=== PATIENT | female | born 1995 | race Two or more races ===

== ENCOUNTER 2022-09-22 15:11 | Inpatient (IN) | payer OTHER ==
[2022-09-22 17:26] VITALS: BMI 22.6
[2022-09-22] MEDS ORDERED: LOPERAMIDE HCL 2 MG CAPSULE PO PRN (18:34)
[2022-09-22] MEDS ORDERED: guaiFENesin 200 MG/10 ML 10 ML UNIT-DOSE CUPS PO PRN (18:34)
[2022-09-22] MEDS ORDERED: MAGNESIUM CITRATE 300 ML BOTTLE PO PRN (18:34)
[2022-09-22] MEDS ORDERED: P-EPHED 60MG/TRIPROLIDI 2.5MG TABLET PO PRN (18:34)
[2022-09-22] MEDS ORDERED: MAGNESIUM HYDROX 2400MG/30ML ORAL SUSPENSION 30 ML CUP PO PRN (18:34)
[2022-09-22] MEDS ORDERED: MAG HYDROX/AL HYDROX/SIMETH 30 ML UNIT-DOSE CUP PO PRN (18:34)
[2022-09-22] MEDS ORDERED: NICOTINE POLACRILEX 2 MG GUM BC PRN (18:34)
[2022-09-22] MEDS ORDERED: TUBERCULIN PPD 5 TU/0.1ML VIAL ID ONE (21:41)
[2022-09-22] MEDS: THIAMINE HCL 100 MG TABLET (FP) PO SCH (21:42)
[2022-09-22] MEDS: hydrOXYzine PAMOATE 25 MG CAPSULE (FP) PO PRN (21:43)
[2022-09-22] MEDS ORDERED: MELATONIN 5 MG TABLETS PO SCH (22:00)
[2022-09-23] MEDS ORDERED: methaDONE HCL 40 MG DISPERSABLE TABLET PO ONE (10:00)
[2022-09-23] MEDS: NICOTINE 21 MG/24 HOURS TOPICAL PATCH TD SCH (11:08)
[2022-09-23] MEDS: PRENATAL VITAMINS W/ FOLIC ACID TABLET (FP) PO SCH (11:08)
[2022-09-23 11:16] LABS: ALBUMIN 3.2 g/dl (3.4-5.0); CALCIUM 8.5 mg/dL (8.5-10.1)
[2022-09-23 11:17] LABS: BLOOD UREA NITROGEN 9.9 mg/dL (7-18)
[2022-09-23 11:20] LABS: CREATININE 0.7 mg/dL (0.55-1.3); HEMATOCRIT 41.5 % (32.4-45.2); HEMOGLOBIN 13.4 GM/dL (10.7-15.3); MCH 28.2 pg (25.7-33.7); MCHC 32.3 g/dl (32.0-36.0); MEAN CELL VOLUME 87.1 fl (80-96); MEAN PLT VOLUME 9.9 fl (7.5-11.1); PLATELET COUNT 198 10^3/uL (134-434); RBC 4.77 M/mm3 (3.60-5.2); RDW 13.4 % (11.6-15.6)
[2022-09-23 11:21] LABS: TOT PROT 6.4 g/dl (6.4-8.2)
[2022-09-23 11:22] LABS: BILIRUBIN,TOTAL 0.5 mg/dL (0.2-1)
[2022-09-23 12:12] LABS: SYPHILIS W/ RPR CONF NON-REACTIVE (NONREACTIVE)
[2022-09-23] MEDS: SUVOREXANT 5 MG TABLET PO PRN (22:37)
[2022-09-23] MEDS: THIAMINE HCL 100 MG TABLET (FP) PO SCH (22:38)
[2022-09-24 03:08] LABS: EPI CELLS >36 /uL (0-25.1); HYALINE CASTS 2 /uL (0-3.1); PH,URINE 6.5 (5.0-8.0); URINE APPEARANCE CLOUDY; URINE BACTERIA 2830 /uL (0-1359); URINE BILIRUBIN NEGATIVE (NEGATIVE); URINE COLOR YELLOW; URINE GLUCOSE (UA) NEGATIVE (NEGATIVE); URINE KETONE NEGATIVE (NEGATIVE); URINE LEUK ESTERASE TRACE (NEGATIVE); URINE NITRITE NEGATIVE (NEGATIVE); URINE PROTEIN NEGATIVE (NEGATIVE); URINE RBC 7 /uL (0-23.9); URINE UROBILINOGEN 0.2 mg/dL (0.2-1.0); URINE WBC 135 /uL (0-25.8)
[2022-09-24] MEDS: methaDONE HCL 40 MG DISPERSABLE TABLET PO SCH (06:37)
[2022-09-24] MEDS: NICOTINE 21 MG/24 HOURS TOPICAL PATCH TD SCH (10:43)
[2022-09-24] MEDS: PRENATAL VITAMINS W/ FOLIC ACID TABLET (FP) PO SCH (10:43)
[2022-09-24] MEDS: ACETAMINOPHEN 325 MG TABLET (FP) PO PRN (10:44)
[2022-09-24] MEDS: THIAMINE HCL 100 MG TABLET (FP) PO SCH (21:42)
[2022-09-24] MEDS: hydrOXYzine PAMOATE 25 MG CAPSULE (FP) PO PRN (21:42)
[2022-09-25] MEDS: methaDONE HCL 40 MG DISPERSABLE TABLET PO SCH (06:36)
[2022-09-25] MEDS: PRENATAL VITAMINS W/ FOLIC ACID TABLET (FP) PO SCH (10:36)
[2022-09-25] MEDS: NICOTINE 21 MG/24 HOURS TOPICAL PATCH TD SCH (10:37)
[2022-09-25] MEDS: ACETAMINOPHEN 325 MG TABLET (FP) PO PRN (10:37)
[2022-09-25] MEDS: hydrOXYzine PAMOATE 25 MG CAPSULE (FP) PO PRN ×2 (10:38→21:25)
[2022-09-25] MEDS: THIAMINE HCL 100 MG TABLET (FP) PO SCH (21:25)
[2022-09-26] MEDS: methaDONE HCL 40 MG DISPERSABLE TABLET PO SCH (06:23)
[2022-09-26] MEDS: PRENATAL VITAMINS W/ FOLIC ACID TABLET (FP) PO SCH (10:08)
[2022-09-26] MEDS: IBUPROFEN 400 MG TABLET (FP) PO PRN (10:08)
[2022-09-26] MEDS: hydrOXYzine PAMOATE 25 MG CAPSULE (FP) PO PRN ×2 (10:09→21:14)
[2022-09-26] MEDS: NICOTINE 21 MG/24 HOURS TOPICAL PATCH TD SCH (10:09)
[2022-09-26] MEDS: GABAPENTIN 300 MG CAPSULE PO SCH ×2 (13:28→21:14)
[2022-09-26] MEDS: SUVOREXANT 5 MG TABLET PO PRN (21:14)
[2022-09-26] MEDS: THIAMINE HCL 100 MG TABLET (FP) PO SCH (21:14)
[2022-09-27] MEDS: NICOTINE 10 MG CARTRIDGE (INHALER) IH PRN ×2 (06:24→21:35)
[2022-09-27] MEDS: methaDONE HCL 40 MG DISPERSABLE TABLET PO SCH (06:26)
[2022-09-27] MEDS: GABAPENTIN 300 MG CAPSULE PO SCH ×3 (06:27→21:35)
[2022-09-27] MEDS: hydrOXYzine PAMOATE 25 MG CAPSULE (FP) PO PRN ×4 (06:28→21:36)
[2022-09-27] MEDS: NICOTINE 21 MG/24 HOURS TOPICAL PATCH TD SCH (10:41)
[2022-09-27] MEDS: PRENATAL VITAMINS W/ FOLIC ACID TABLET (FP) PO SCH (10:41)
[2022-09-27] MEDS: IBUPROFEN 400 MG TABLET (FP) PO PRN (18:52)
[2022-09-27] MEDS: THIAMINE HCL 100 MG TABLET (FP) PO SCH (21:35)
[2022-09-27] MEDS: SUVOREXANT 5 MG TABLET PO PRN (21:39)
[2022-09-28] MEDS: GABAPENTIN 300 MG CAPSULE PO SCH ×3 (06:10→21:21)
[2022-09-28] MEDS: methaDONE HCL 40 MG DISPERSABLE TABLET PO SCH (06:10)
[2022-09-28] MEDS: hydrOXYzine PAMOATE 25 MG CAPSULE (FP) PO PRN ×2 (06:52→15:54)
[2022-09-28] MEDS: PRENATAL VITAMINS W/ FOLIC ACID TABLET (FP) PO SCH (10:15)
[2022-09-28] MEDS: NICOTINE 21 MG/24 HOURS TOPICAL PATCH TD SCH (10:15)
[2022-09-28] MEDS: ACETAMINOPHEN 325 MG TABLET (FP) PO PRN (10:16)
[2022-09-28] MEDS: NICOTINE 10 MG CARTRIDGE (INHALER) IH PRN (10:16)
[2022-09-28] MEDS: IBUPROFEN 400 MG TABLET (FP) PO PRN (12:06)
[2022-09-28] MEDS: THIAMINE HCL 100 MG TABLET (FP) PO SCH (21:21)
[2022-09-28] MEDS: SUVOREXANT 5 MG TABLET PO PRN (21:24)
[2022-09-29] MEDS: methaDONE HCL 40 MG DISPERSABLE TABLET PO SCH (06:10)
[2022-09-29] MEDS: GABAPENTIN 300 MG CAPSULE PO SCH ×3 (06:11→21:23)
[2022-09-29] MEDS: hydrOXYzine PAMOATE 25 MG CAPSULE (FP) PO PRN ×3 (07:51→21:25)
[2022-09-29] MEDS: PRENATAL VITAMINS W/ FOLIC ACID TABLET (FP) PO SCH (10:31)
[2022-09-29] MEDS: NICOTINE 21 MG/24 HOURS TOPICAL PATCH TD SCH (10:31)
[2022-09-29] MEDS: IBUPROFEN 400 MG TABLET (FP) PO PRN (10:32)
[2022-09-29] MEDS: ACETAMINOPHEN 325 MG TABLET (FP) PO PRN (20:08)
[2022-09-29] MEDS: THIAMINE HCL 100 MG TABLET (FP) PO SCH (21:23)
[2022-09-30] MEDS: NICOTINE 10 MG CARTRIDGE (INHALER) IH PRN (03:12)
[2022-09-30] MEDS: hydrOXYzine PAMOATE 25 MG CAPSULE (FP) PO PRN (03:43)
[2022-09-30] MEDS: methaDONE HCL 40 MG DISPERSABLE TABLET PO SCH (06:12)
[2022-09-30] MEDS: GABAPENTIN 300 MG CAPSULE PO SCH ×3 (06:12→21:44)
[2022-09-30] MEDS ORDERED: MAGNESIUM HYDROX 2400MG/30ML ORAL SUSPENSION 30 ML CUP PO PRN (07:43)
[2022-09-30] MEDS ORDERED: P-EPHED 60MG/TRIPROLIDI 2.5MG TABLET PO PRN (07:43)
[2022-09-30] MEDS ORDERED: LOPERAMIDE HCL 2 MG CAPSULE PO PRN (07:43)
[2022-09-30] MEDS ORDERED: MAGNESIUM CITRATE 300 ML BOTTLE PO PRN (07:43)
[2022-09-30] MEDS ORDERED: guaiFENesin 200 MG/10 ML 10 ML UNIT-DOSE CUPS PO PRN (07:44)
[2022-09-30] MEDS ORDERED: MAG HYDROX/AL HYDROX/SIMETH 30 ML UNIT-DOSE CUP PO PRN (07:44)
[2022-09-30] MEDS ORDERED: NICOTINE 10 MG CARTRIDGE (INHALER) IH PRN (07:44)
[2022-09-30] MEDS: NICOTINE 21 MG/24 HOURS TOPICAL PATCH TD SCH (10:41)
[2022-09-30] MEDS: PRENATAL VITAMINS W/ FOLIC ACID TABLET (FP) PO SCH (10:41)
[2022-09-30] MEDS: METHOCARBAMOL 500 MG TABLET PO PRN ×2 (13:21→21:44)
[2022-09-30] MEDS: IBUPROFEN 400 MG TABLET (FP) PO PRN (14:25)
[2022-09-30] MEDS: SUVOREXANT 10 MG TABLET PO PRN (21:45)
[2022-09-30] MEDS: THIAMINE HCL 100 MG TABLET (FP) PO SCH (21:46)
[2022-10-01] MEDS ORDERED: MENTHOL/PHENOL 1 EACH UD MM PRN (00:56)
[2022-10-01] MEDS: METHOCARBAMOL 500 MG TABLET PO PRN ×3 (03:07→21:49)
[2022-10-01] MEDS: IBUPROFEN 400 MG TABLET (FP) PO PRN (03:08)
[2022-10-01] MEDS: methaDONE HCL 40 MG DISPERSABLE TABLET PO SCH (06:38)
[2022-10-01] MEDS: GABAPENTIN 300 MG CAPSULE PO SCH ×3 (06:38→21:49)
[2022-10-01] MEDS: NICOTINE POLACRILEX 2 MG GUM BC PRN ×4 (06:40→21:51)
[2022-10-01] MEDS: NICOTINE 21 MG/24 HOURS TOPICAL PATCH TD SCH (10:26)
[2022-10-01] MEDS: PRENATAL VITAMINS W/ FOLIC ACID TABLET (FP) PO SCH (10:26)
[2022-10-01 12:14] LABS: HIV INTERPRETATION NEGATIVE (NEGATIVE)
[2022-10-01] MEDS: THIAMINE HCL 100 MG TABLET (FP) PO SCH (21:49)
[2022-10-01] MEDS: SUVOREXANT 10 MG TABLET PO PRN (21:50)
[2022-10-02] MEDS: GABAPENTIN 300 MG CAPSULE PO SCH ×3 (06:27→21:58)
[2022-10-02] MEDS: methaDONE HCL 40 MG DISPERSABLE TABLET PO SCH (06:27)
[2022-10-02] MEDS: METHOCARBAMOL 500 MG TABLET PO PRN ×3 (06:29→21:58)
[2022-10-02] MEDS: PRENATAL VITAMINS W/ FOLIC ACID TABLET (FP) PO SCH (10:12)
[2022-10-02] MEDS: NICOTINE 21 MG/24 HOURS TOPICAL PATCH TD SCH (10:12)
[2022-10-02] MEDS: NICOTINE POLACRILEX 2 MG GUM BC PRN ×5 (10:13→23:44)
[2022-10-02] MEDS: IBUPROFEN 400 MG TABLET (FP) PO PRN ×2 (10:15→23:45)
[2022-10-02] MEDS: THIAMINE HCL 100 MG TABLET (FP) PO SCH (21:58)
[2022-10-02] MEDS: SUVOREXANT 10 MG TABLET PO PRN (21:58)
[2022-10-03] MEDS: methaDONE HCL 40 MG DISPERSABLE TABLET PO SCH (06:09)
[2022-10-03] MEDS: GABAPENTIN 300 MG CAPSULE PO SCH ×3 (06:09→21:45)
[2022-10-03] MEDS: METHOCARBAMOL 500 MG TABLET PO PRN ×3 (06:14→16:38)
[2022-10-03] MEDS: NICOTINE 21 MG/24 HOURS TOPICAL PATCH TD SCH (10:27)
[2022-10-03] MEDS: PRENATAL VITAMINS W/ FOLIC ACID TABLET (FP) PO SCH (10:27)
[2022-10-03] MEDS: NICOTINE POLACRILEX 2 MG GUM BC PRN ×3 (10:29→16:39)
[2022-10-03] MEDS: ACETAMINOPHEN 325 MG TABLET (FP) PO PRN (17:38)
[2022-10-03] MEDS: IBUPROFEN 400 MG TABLET (FP) PO PRN (21:45)
[2022-10-03] MEDS: THIAMINE HCL 100 MG TABLET (FP) PO SCH (21:45)
[2022-10-03] MEDS ORDERED: SUVOREXANT 10 MG TABLET PO PRN (22:00)
[2022-10-04] MEDS: methaDONE HCL 40 MG DISPERSABLE TABLET PO SCH (06:01)
[2022-10-04] MEDS: GABAPENTIN 300 MG CAPSULE PO SCH ×3 (06:02→21:31)
[2022-10-04] MEDS: METHOCARBAMOL 500 MG TABLET PO PRN ×2 (06:06→18:17)
[2022-10-04] MEDS: NICOTINE POLACRILEX 2 MG GUM BC PRN ×4 (06:07→21:34)
[2022-10-04] MEDS: NICOTINE 21 MG/24 HOURS TOPICAL PATCH TD SCH (10:36)
[2022-10-04] MEDS: PRENATAL VITAMINS W/ FOLIC ACID TABLET (FP) PO SCH (10:36)
[2022-10-04] MEDS: hydrOXYzine PAMOATE 25 MG CAPSULE (FP) PO PRN (14:15)
[2022-10-04] MEDS: IBUPROFEN 400 MG TABLET (FP) PO PRN (18:17)
[2022-10-04] MEDS: THIAMINE HCL 100 MG TABLET (FP) PO SCH (21:31)
[2022-10-04] MEDS: SUVOREXANT 15 MG TABLET PO PRN (21:32)
[2022-10-05] MEDS: hydrOXYzine PAMOATE 25 MG CAPSULE (FP) PO PRN ×3 (01:58→20:19)
[2022-10-05] MEDS: METHOCARBAMOL 500 MG TABLET PO PRN ×2 (01:58→20:19)
[2022-10-05] MEDS: methaDONE HCL 40 MG DISPERSABLE TABLET PO SCH (06:25)
[2022-10-05] MEDS: GABAPENTIN 300 MG CAPSULE PO SCH ×3 (06:25→21:25)
[2022-10-05] MEDS: NICOTINE 21 MG/24 HOURS TOPICAL PATCH TD SCH (09:59)
[2022-10-05] MEDS: PRENATAL VITAMINS W/ FOLIC ACID TABLET (FP) PO SCH (09:59)
[2022-10-05] MEDS: NICOTINE POLACRILEX 2 MG GUM BC PRN ×3 (10:02→21:27)
[2022-10-05] MEDS: THIAMINE HCL 100 MG TABLET (FP) PO SCH (21:25)
[2022-10-05] MEDS: SUVOREXANT 15 MG TABLET PO PRN (21:26)
[2022-10-06] MEDS: GABAPENTIN 300 MG CAPSULE PO SCH ×3 (06:39→21:27)
[2022-10-06] MEDS: methaDONE HCL 40 MG DISPERSABLE TABLET PO SCH (06:39)
[2022-10-06] MEDS: NICOTINE 21 MG/24 HOURS TOPICAL PATCH TD SCH (10:19)
[2022-10-06] MEDS: PRENATAL VITAMINS W/ FOLIC ACID TABLET (FP) PO SCH (10:19)
[2022-10-06] MEDS: hydrOXYzine PAMOATE 25 MG CAPSULE (FP) PO PRN ×2 (10:20→18:25)
[2022-10-06] MEDS: METHOCARBAMOL 500 MG TABLET PO PRN (14:10)
[2022-10-06] MEDS: NICOTINE POLACRILEX 2 MG GUM BC PRN (18:25)
[2022-10-06] MEDS: THIAMINE HCL 100 MG TABLET (FP) PO SCH (21:27)
[2022-10-06] MEDS: SUVOREXANT 15 MG TABLET PO PRN (21:28)
[2022-10-07] MEDS: methaDONE HCL 40 MG DISPERSABLE TABLET PO SCH (06:29)
[2022-10-07] MEDS: GABAPENTIN 300 MG CAPSULE PO SCH ×3 (06:30→21:51)
[2022-10-07] MEDS: NICOTINE 21 MG/24 HOURS TOPICAL PATCH TD SCH (10:30)
[2022-10-07] MEDS: PRENATAL VITAMINS W/ FOLIC ACID TABLET (FP) PO SCH (10:30)
[2022-10-07] MEDS: NICOTINE POLACRILEX 2 MG GUM BC PRN ×2 (10:31→21:52)
[2022-10-07] MEDS: hydrOXYzine PAMOATE 25 MG CAPSULE (FP) PO PRN ×2 (10:31→21:50)
[2022-10-07] MEDS ORDERED: metroNIDAZOLE 250 MG TABLET PO ONE (11:00)
[2022-10-07] MEDS: METHOCARBAMOL 500 MG TABLET PO PRN (21:51)
[2022-10-07] MEDS: SUVOREXANT 15 MG TABLET PO PRN (21:51)
[2022-10-07] MEDS: THIAMINE HCL 100 MG TABLET (FP) PO SCH (21:51)
[2022-10-08] MEDS: methaDONE HCL 40 MG DISPERSABLE TABLET PO SCH (06:08)
[2022-10-08] MEDS: GABAPENTIN 300 MG CAPSULE PO SCH ×3 (06:08→21:56)
[2022-10-08] MEDS: NICOTINE 21 MG/24 HOURS TOPICAL PATCH TD SCH (10:22)
[2022-10-08] MEDS: PRENATAL VITAMINS W/ FOLIC ACID TABLET (FP) PO SCH (10:22)
[2022-10-08] MEDS: hydrOXYzine PAMOATE 25 MG CAPSULE (FP) PO PRN ×2 (10:24→21:56)
[2022-10-08] MEDS: IBUPROFEN 400 MG TABLET (FP) PO PRN (12:41)
[2022-10-08] MEDS: METHOCARBAMOL 500 MG TABLET PO PRN ×2 (14:17→21:58)
[2022-10-08] MEDS: NICOTINE POLACRILEX 2 MG GUM BC PRN (14:18)
[2022-10-08] MEDS: THIAMINE HCL 100 MG TABLET (FP) PO SCH (21:56)
[2022-10-08] MEDS: SUVOREXANT 15 MG TABLET PO PRN (21:58)
[2022-10-09 06:01] VITALS: RESP 18
[2022-10-09] MEDS: methaDONE HCL 40 MG DISPERSABLE TABLET PO SCH (06:33)
[2022-10-09] MEDS: GABAPENTIN 300 MG CAPSULE PO SCH ×3 (06:34→21:52)
[2022-10-09] MEDS: PRENATAL VITAMINS W/ FOLIC ACID TABLET (FP) PO SCH (10:29)
[2022-10-09] MEDS: NICOTINE 21 MG/24 HOURS TOPICAL PATCH TD SCH (10:29)
[2022-10-09] MEDS: NICOTINE POLACRILEX 2 MG GUM BC PRN ×3 (10:31→19:19)
[2022-10-09] MEDS ORDERED: FLU VACC QS2022-23(6MOS UP)/PF 60 MCG/0.5 ML SYRINGE IM ONE (12:00)
[2022-10-09] MEDS ORDERED: PNEUMOC 20-VAL CONJ-DIP CRM/PF 0.5 ML SYRINGE IM ONE (12:00)
[2022-10-09] MEDS: METHOCARBAMOL 500 MG TABLET PO PRN ×2 (13:07→21:52)
[2022-10-09] MEDS: hydrOXYzine PAMOATE 25 MG CAPSULE (FP) PO PRN ×2 (13:08→21:52)
[2022-10-09] MEDS: SUVOREXANT 15 MG TABLET PO PRN (21:52)
[2022-10-09] MEDS: THIAMINE HCL 100 MG TABLET (FP) PO SCH (21:52)
[2022-10-09] MEDS: ACETAMINOPHEN 325 MG TABLET (FP) PO PRN (23:40)
[2022-10-10] MEDS: methaDONE HCL 40 MG DISPERSABLE TABLET PO SCH (06:25)
[2022-10-10] MEDS: GABAPENTIN 300 MG CAPSULE PO SCH ×3 (06:25→21:25)
[2022-10-10] MEDS: METHOCARBAMOL 500 MG TABLET PO PRN (08:50)
[2022-10-10] MEDS: IBUPROFEN 400 MG TABLET (FP) PO PRN (08:50)
[2022-10-10] MEDS: PRENATAL VITAMINS W/ FOLIC ACID TABLET (FP) PO SCH (10:30)
[2022-10-10] MEDS: NICOTINE 21 MG/24 HOURS TOPICAL PATCH TD SCH (10:30)
[2022-10-10] MEDS: NICOTINE POLACRILEX 2 MG GUM BC PRN ×3 (10:30→21:25)
[2022-10-10] MEDS: hydrOXYzine PAMOATE 25 MG CAPSULE (FP) PO PRN ×2 (10:30→21:23)
[2022-10-10] MEDS: SUVOREXANT 15 MG TABLET PO PRN (21:24)
[2022-10-10] MEDS: THIAMINE HCL 100 MG TABLET (FP) PO SCH (21:25)
[2022-10-11] MEDS: methaDONE HCL 40 MG DISPERSABLE TABLET PO SCH (06:15)
[2022-10-11] MEDS: GABAPENTIN 300 MG CAPSULE PO SCH ×3 (06:15→21:34)
[2022-10-11] MEDS: NICOTINE POLACRILEX 2 MG GUM BC PRN ×4 (06:16→21:38)
[2022-10-11] MEDS: hydrOXYzine PAMOATE 25 MG CAPSULE (FP) PO PRN ×2 (10:30→21:35)
[2022-10-11] MEDS: NICOTINE 21 MG/24 HOURS TOPICAL PATCH TD SCH (10:30)
[2022-10-11] MEDS: PRENATAL VITAMINS W/ FOLIC ACID TABLET (FP) PO SCH (10:30)
[2022-10-11] MEDS: METHOCARBAMOL 500 MG TABLET PO PRN (14:09)
[2022-10-11] MEDS: THIAMINE HCL 100 MG TABLET (FP) PO SCH (21:34)
[2022-10-11] MEDS: SUVOREXANT 15 MG TABLET PO PRN (21:37)
[2022-10-12] MEDS: methaDONE HCL 40 MG DISPERSABLE TABLET PO SCH (06:40)
[2022-10-12] MEDS: GABAPENTIN 300 MG CAPSULE PO SCH (06:40)
[2022-10-12 07:51] VITALS: BP 100/67; PULSE 81; TEMP 96.8
[2022-10-12] MEDS: NICOTINE 21 MG/24 HOURS TOPICAL PATCH TD SCH (09:52)
[2022-10-12] MEDS: hydrOXYzine PAMOATE 25 MG CAPSULE (FP) PO PRN (09:52)
[2022-10-12] MEDS: PRENATAL VITAMINS W/ FOLIC ACID TABLET (FP) PO SCH (09:52)
== END 2022-10-12 10:15 | disposition home or self-care (01) | DRG 772 ==
LOC: YASAS 15:11 → Y5N 20:02
PROVIDERS: ADMIT Allergy & Immunology; ATTEND Surgery
PROC: HZ42ZZZ Group Counseling for Substance Abuse Treatment, Cognitive-Behavioral (ICD-10-PCS; principal; 2022-09-22)
DX: F11.20 Opioid dependence, uncomplicated (principal); F14.20 Cocaine dependence, uncomplicated; F10.90 Alcohol use, unspecified, uncomplicated; F12.20 Cannabis dependence, uncomplicated; F17.210 Nicotine dependence, cigarettes, uncomplicated; F19.24 Other psychoactive substance dependence with psychoactive substance-induced mood disorder; F41.9 Anxiety disorder, unspecified; A59.00 Urogenital trichomoniasis, unspecified; G47.00 Insomnia, unspecified
CPT/HCPCS: 36415; 80053; 81003; 81025; 84702; 84703; 85027; 86780; 86803; 87389; 87491; 87522; 87591; 87661; 90677; C9803-CS; Q2036; U0003; U0005

== ENCOUNTER 2023-04-27 16:43 | Inpatient (IN) | payer OTHER ==
[2023-04-27 17:24] VITALS: BMI 21.6
[2023-04-27] MEDS ORDERED: POLYETHYLENE GLYCOL (HEALTHYLAX) 3350 17 GM PACKET PO PRN (19:51)
[2023-04-27] MEDS ORDERED: NALOXONE HCL 0.4 MG/ML VIAL IM PRN (19:51)
[2023-04-27] MEDS ORDERED: BENZOCAINE/MENTHOL (CHLORASEPTIC ) LOZENGE MM PRN (19:51)
[2023-04-27] MEDS ORDERED: BENZONATATE 200 MG CAPSULE PO PRN (19:51)
[2023-04-27] MEDS ORDERED: guaiFENesin 600 MG TABLET.ER (FP) PO PRN (19:51)
[2023-04-27] MEDS ORDERED: NALOXONE HCL (KLOXXADO) 8 MG SPRAY NS PRN (19:51)
[2023-04-27] MEDS ORDERED: LOPERAMIDE HCL 2 MG CAPSULE PO PRN (19:51)
[2023-04-27] MEDS ORDERED: IBUPROFEN 400 MG TABLET (FP) PO PRN (19:51)
[2023-04-27] MEDS ORDERED: AMMONIUM LACTATE 12% LOTION 225 GM BOTTLE TP PRN (19:51)
[2023-04-27] MEDS ORDERED: MELATONIN 5 MG TABLETS PO PRN (19:51)
[2023-04-28] MEDS: THIAMINE HCL 100 MG TABLET (FP) PO SCH ×2 (01:15→21:35)
[2023-04-28] MEDS ORDERED: methaDONE HCL 10 MG TABLET PO SCH (08:15)
[2023-04-28] MEDS: PRENATAL VITAMINS W/ FOLIC ACID TABLET (FP) PO SCH (09:57)
[2023-04-28] MEDS: BENZOCAINE 20 % GEL TUBE MM PRN ×2 (12:10→21:38)
[2023-04-28 14:23] LABS: URINE COLOR DK YELLOW
[2023-04-28 14:24] LABS: URINE APPEARANCE CLOUDY; URINE BILIRUBIN 1+ (NEGATIVE); URINE GLUCOSE (UA) NEGATIVE (NEGATIVE); URINE KETONE TRACE (NEGATIVE); URINE LEUK ESTERASE TRACE (NEGATIVE); URINE NITRITE NEGATIVE (NEGATIVE); URINE PROTEIN TRACE (NEGATIVE)
[2023-04-28 14:40] LABS: EPI CELLS >36 /uL (0-25.1); HYALINE CASTS 4 /uL (0-3.1); URINE BACTERIA 587 /uL (0-1359); URINE RBC 17 /uL (0-23.9); URINE WBC 35 /uL (0-25.8)
[2023-04-28] MEDS: hydrOXYzine PAMOATE 25 MG CAPSULE (FP) PO PRN (21:35)
[2023-04-28] MEDS: SUVOREXANT 5 MG TABLET PO PRN (21:36)
[2023-04-28] MEDS: ACETAMINOPHEN 325 MG TABLET (FP) PO PRN (22:27)
[2023-04-29] MEDS: ACETAMINOPHEN 325 MG TABLET (FP) PO PRN (06:22)
[2023-04-29] MEDS: hydrOXYzine PAMOATE 25 MG CAPSULE (FP) PO PRN ×2 (06:22→21:30)
[2023-04-29] MEDS: BENZOCAINE 20 % GEL TUBE MM PRN (08:20)
[2023-04-29 09:29] LABS: HEMATOCRIT 39.6 % (32.4-45.2); HEMOGLOBIN 12.9 GM/dL (10.7-15.3); MCH 27.6 pg (25.7-33.7); MCHC 32.7 g/dl (32.0-36.0); MEAN CELL VOLUME 84.4 fl (80-96); MEAN PLT VOLUME 9.4 fl (7.5-11.1); PLATELET COUNT 319 10^3/uL (134-434); RBC 4.69 M/mm3 (3.60-5.2); RDW 13.9 % (11.6-15.6); WHITE BLOOD COUNT 8.6 K/mm3 (4.0-10.0)
[2023-04-29 10:35] LABS: POTASSIUM 4.6 mmol/L (3.5-5.1)
[2023-04-29] MEDS: PRENATAL VITAMINS W/ FOLIC ACID TABLET (FP) PO SCH (10:36)
[2023-04-29 10:40] LABS: BLOOD UREA NITROGEN 9.8 mg/dL (7-18); CALCIUM 8.9 mg/dL (8.5-10.1)
[2023-04-29 10:44] LABS: BILIRUBIN,TOTAL 0.3 mg/dL (0.2-1); CREATININE 0.6 mg/dL (0.55-1.3); TOT PROT 6.7 g/dl (6.4-8.2)
[2023-04-29 11:25] LABS: SYPHILIS W/ RPR CONF NON-REACTIVE (NONREACTIVE)
[2023-04-29] MEDS: THIAMINE HCL 100 MG TABLET (FP) PO SCH (21:27)
[2023-04-29] MEDS: NICOTINE POLACRILEX 2 MG GUM BUC PRN (21:30)
[2023-04-30] MEDS: ACETAMINOPHEN 325 MG TABLET (FP) PO PRN (06:32)
[2023-04-30] MEDS: hydrOXYzine PAMOATE 25 MG CAPSULE (FP) PO PRN ×2 (06:33→21:17)
[2023-04-30] MEDS: PRENATAL VITAMINS W/ FOLIC ACID TABLET (FP) PO SCH (09:40)
[2023-04-30] MEDS: BENZOCAINE 20 % GEL TUBE MM PRN (12:05)
[2023-04-30] MEDS: THIAMINE HCL 100 MG TABLET (FP) PO SCH (21:16)
[2023-04-30] MEDS: NICOTINE POLACRILEX 2 MG GUM BUC PRN (21:17)
[2023-05-01] MEDS ORDERED: METHOCARBAMOL 500 MG TABLET PO ONE (09:00)
[2023-05-01] MEDS: PRENATAL VITAMINS W/ FOLIC ACID TABLET (FP) PO SCH (10:04)
[2023-05-01] MEDS: hydrOXYzine PAMOATE 25 MG CAPSULE (FP) PO PRN ×2 (10:05→21:45)
[2023-05-01] MEDS: NICOTINE POLACRILEX 2 MG GUM BUC PRN ×2 (11:42→21:45)
[2023-05-01] MEDS: SUVOREXANT 5 MG TABLET PO PRN (21:43)
[2023-05-01] MEDS: THIAMINE HCL 100 MG TABLET (FP) PO SCH (21:43)
[2023-05-02] MEDS: hydrOXYzine PAMOATE 25 MG CAPSULE (FP) PO PRN ×2 (09:54→21:17)
[2023-05-02] MEDS: PRENATAL VITAMINS W/ FOLIC ACID TABLET (FP) PO SCH (09:54)
[2023-05-02] MEDS: NICOTINE POLACRILEX 2 MG GUM BUC PRN ×3 (09:55→21:18)
[2023-05-02] MEDS: GABAPENTIN 300 MG CAPSULE PO SCH ×2 (14:33→21:15)
[2023-05-02] MEDS: THIAMINE HCL 100 MG TABLET (FP) PO SCH (21:15)
[2023-05-02] MEDS: SUVOREXANT 5 MG TABLET PO PRN (21:17)
[2023-05-03] MEDS: GABAPENTIN 300 MG CAPSULE PO SCH ×3 (07:16→21:14)
[2023-05-03] MEDS: NICOTINE POLACRILEX 2 MG GUM BUC PRN ×4 (07:19→12:31)
[2023-05-03] MEDS: PRENATAL VITAMINS W/ FOLIC ACID TABLET (FP) PO SCH (09:56)
[2023-05-03] MEDS: hydrOXYzine PAMOATE 25 MG CAPSULE (FP) PO PRN ×3 (09:56→21:13)
[2023-05-03] MEDS: NICOTINE POLACRILEX 4 MG GUM BUC PRN ×3 (14:41→19:53)
[2023-05-03] MEDS: SUVOREXANT 5 MG TABLET PO PRN (21:14)
[2023-05-03] MEDS: THIAMINE HCL 100 MG TABLET (FP) PO SCH (21:14)
[2023-05-04] MEDS: GABAPENTIN 300 MG CAPSULE PO SCH ×3 (06:28→21:37)
[2023-05-04] MEDS: PRENATAL VITAMINS W/ FOLIC ACID TABLET (FP) PO SCH (09:48)
[2023-05-04] MEDS: hydrOXYzine PAMOATE 25 MG CAPSULE (FP) PO PRN ×2 (09:48→21:37)
[2023-05-04] MEDS: NICOTINE POLACRILEX 4 MG GUM BUC PRN ×4 (09:49→23:39)
[2023-05-04] MEDS: MAG HYDROX/AL HYDROX/SIMETH 30 ML UNIT-DOSE CUP PO PRN (21:36)
[2023-05-04] MEDS: THIAMINE HCL 100 MG TABLET (FP) PO SCH (21:37)
[2023-05-04] MEDS: SUVOREXANT 5 MG TABLET PO PRN (21:37)
[2023-05-05] MEDS: NICOTINE POLACRILEX 4 MG GUM BUC PRN ×4 (04:10→21:37)
[2023-05-05] MEDS: METHOCARBAMOL 500 MG TABLET PO PRN ×2 (06:44→21:34)
[2023-05-05] MEDS: GABAPENTIN 300 MG CAPSULE PO SCH ×3 (06:44→21:33)
[2023-05-05] MEDS: PRENATAL VITAMINS W/ FOLIC ACID TABLET (FP) PO SCH (09:58)
[2023-05-05] MEDS: hydrOXYzine PAMOATE 25 MG CAPSULE (FP) PO PRN ×2 (09:59→21:33)
[2023-05-05] MEDS: MAG HYDROX/AL HYDROX/SIMETH 30 ML UNIT-DOSE CUP PO PRN (17:19)
[2023-05-05] MEDS: MAGNESIUM HYDROX 2400MG/30ML ORAL SUSPENSION 30 ML CUP PO PRN (19:29)
[2023-05-05] MEDS: THIAMINE HCL 100 MG TABLET (FP) PO SCH (21:33)
[2023-05-06] MEDS: GABAPENTIN 300 MG CAPSULE PO SCH ×3 (06:53→21:32)
[2023-05-06] MEDS: COLLOIDAL OATMEAL 1 BAR EACH TP PRN (06:59)
[2023-05-06] MEDS: NICOTINE POLACRILEX 4 MG GUM BUC PRN ×4 (06:59→21:33)
[2023-05-06] MEDS: PRENATAL VITAMINS W/ FOLIC ACID TABLET (FP) PO SCH (09:42)
[2023-05-06] MEDS: MAGNESIUM HYDROX 2400MG/30ML ORAL SUSPENSION 30 ML CUP PO PRN (11:22)
[2023-05-06] MEDS: hydrOXYzine PAMOATE 25 MG CAPSULE (FP) PO PRN ×2 (13:20→21:33)
[2023-05-06] MEDS: SUVOREXANT 5 MG TABLET PO PRN (21:30)
[2023-05-06] MEDS: METHOCARBAMOL 500 MG TABLET PO PRN (21:31)
[2023-05-06] MEDS: THIAMINE HCL 100 MG TABLET (FP) PO SCH (21:32)
[2023-05-06] MEDS: IBUPROFEN 600 MG TABLET (FP) PO PRN (22:42)
[2023-05-07] MEDS: GABAPENTIN 300 MG CAPSULE PO SCH ×3 (06:54→21:55)
[2023-05-07] MEDS: MAG HYDROX/AL HYDROX/SIMETH 30 ML UNIT-DOSE CUP PO PRN (09:11)
[2023-05-07] MEDS: PRENATAL VITAMINS W/ FOLIC ACID TABLET (FP) PO SCH (09:52)
[2023-05-07] MEDS: hydrOXYzine PAMOATE 25 MG CAPSULE (FP) PO PRN ×2 (09:52→21:55)
[2023-05-07] MEDS: NICOTINE POLACRILEX 4 MG GUM BUC PRN ×3 (09:53→21:56)
[2023-05-07] MEDS: THIAMINE HCL 100 MG TABLET (FP) PO SCH (21:55)
[2023-05-07] MEDS ORDERED: SUVOREXANT 10 MG TABLET PO PRN (22:00)
[2023-05-07] MEDS: METHOCARBAMOL 500 MG TABLET PO PRN (23:45)
[2023-05-08] MEDS: GABAPENTIN 300 MG CAPSULE PO SCH ×3 (06:12→21:38)
[2023-05-08] MEDS: NICOTINE POLACRILEX 4 MG GUM BUC PRN ×5 (06:14→21:40)
[2023-05-08 07:54] VITALS: RESP 18
[2023-05-08] MEDS: PRENATAL VITAMINS W/ FOLIC ACID TABLET (FP) PO SCH (09:56)
[2023-05-08] MEDS: hydrOXYzine PAMOATE 25 MG CAPSULE (FP) PO PRN ×2 (09:57→21:35)
[2023-05-08] MEDS: MAG HYDROX/AL HYDROX/SIMETH 30 ML UNIT-DOSE CUP PO PRN (13:38)
[2023-05-08] MEDS: THIAMINE HCL 100 MG TABLET (FP) PO SCH (21:38)
[2023-05-08] MEDS: METHOCARBAMOL 500 MG TABLET PO PRN (21:39)
[2023-05-09] MEDS: GABAPENTIN 300 MG CAPSULE PO SCH ×3 (07:09→21:31)
[2023-05-09] MEDS: NICOTINE POLACRILEX 4 MG GUM BUC PRN ×6 (07:13→23:45)
[2023-05-09] MEDS: PRENATAL VITAMINS W/ FOLIC ACID TABLET (FP) PO SCH (10:20)
[2023-05-09] MEDS: hydrOXYzine PAMOATE 25 MG CAPSULE (FP) PO PRN ×3 (10:20→21:31)
[2023-05-09] MEDS: METHOCARBAMOL 500 MG TABLET PO PRN ×2 (10:24→21:31)
[2023-05-09] MEDS: METHYL SALICYLATE/MENTHOL OINT 30 GM TUBE TP SCH (17:57)
[2023-05-09] MEDS: THIAMINE HCL 100 MG TABLET (FP) PO SCH (21:31)
[2023-05-09] MEDS ORDERED: SUVOREXANT 5 MG TABLET PO PRN (22:00)
[2023-05-09] MEDS: IBUPROFEN 600 MG TABLET (FP) PO PRN (23:44)
[2023-05-10] MEDS: GABAPENTIN 300 MG CAPSULE PO SCH ×3 (06:40→21:29)
[2023-05-10] MEDS: NICOTINE POLACRILEX 4 MG GUM BUC PRN ×6 (06:43→21:30)
[2023-05-10] MEDS: MAG HYDROX/AL HYDROX/SIMETH 30 ML UNIT-DOSE CUP PO PRN (08:04)
[2023-05-10] MEDS: hydrOXYzine PAMOATE 25 MG CAPSULE (FP) PO PRN ×3 (09:47→21:29)
[2023-05-10] MEDS: PRENATAL VITAMINS W/ FOLIC ACID TABLET (FP) PO SCH (09:47)
[2023-05-10] MEDS: METHOCARBAMOL 500 MG TABLET PO PRN ×2 (09:49→21:29)
[2023-05-10] MEDS: METHYL SALICYLATE/MENTHOL OINT 30 GM TUBE TP SCH (10:19)
[2023-05-10] MEDS: THIAMINE HCL 100 MG TABLET (FP) PO SCH (21:29)
[2023-05-11] MEDS: GABAPENTIN 300 MG CAPSULE PO SCH (06:49)
[2023-05-11] MEDS: hydrOXYzine PAMOATE 25 MG CAPSULE (FP) PO PRN (06:52)
[2023-05-11] MEDS: NICOTINE POLACRILEX 4 MG GUM BUC PRN ×2 (06:53→09:40)
[2023-05-11 07:23] VITALS: TEMP 97.7
[2023-05-11] MEDS: PRENATAL VITAMINS W/ FOLIC ACID TABLET (FP) PO SCH (09:40)
[2023-05-11] MEDS: METHOCARBAMOL 500 MG TABLET PO PRN (09:42)
[2023-05-11] MEDS: COLLOIDAL OATMEAL 1 BAR EACH TP PRN (09:42)
[2023-05-11] MEDS: METHYL SALICYLATE/MENTHOL OINT 30 GM TUBE TP SCH (10:14)
[2023-05-11 10:59] VITALS: BP 103/63; PULSE 83
== END 2023-05-11 11:35 | disposition home or self-care (01) | DRG 772 ==
LOC: YASAS 16:43 → Y5N 21:17
PROVIDERS: ADMIT Allergy & Immunology; ATTEND Psychiatry & Neurology Pain Medicine
PROC: HZ42ZZZ Group Counseling for Substance Abuse Treatment, Cognitive-Behavioral (ICD-10-PCS; principal; 2023-04-27)
DX: F14.20 Cocaine dependence, uncomplicated (principal); F11.20 Opioid dependence, uncomplicated; F17.210 Nicotine dependence, cigarettes, uncomplicated; F19.282 Other psychoactive substance dependence with psychoactive substance-induced sleep disorder; F19.24 Other psychoactive substance dependence with psychoactive substance-induced mood disorder; F41.9 Anxiety disorder, unspecified; K12.0 Recurrent oral aphthae; Z86.19 Personal history of other infectious and parasitic diseases; Y04.0XXA Assault by unarmed brawl or fight, initial encounter; Y93.9 Activity, unspecified; Y92.239 Unspecified place in hospital as the place of occurrence of the external cause
CPT/HCPCS: 36415; 80053; 81003; 81025; 85027; 86780; 86803; 87491; 87522; 87591; 87635; 87661

== ENCOUNTER 2024-01-02 13:47 | Inpatient (IN) | payer OTHER ==
[2024-01-02 14:12] VITALS: BMI 21.6
[2024-01-02] MEDS ORDERED: MAG HYDROX/AL HYDROX/SIMETH 30 ML UNIT-DOSE CUP PO PRN (15:24)
[2024-01-02] MEDS ORDERED: hydrOXYzine PAMOATE 25 MG CAPSULE (FP) PO PRN (15:24)
[2024-01-02] MEDS ORDERED: NALOXONE HCL 0.4 MG/ML VIAL IM PRN (15:24)
[2024-01-02] MEDS ORDERED: IBUPROFEN 400 MG TABLET (FP) PO PRN (15:24)
[2024-01-02] MEDS ORDERED: LOPERAMIDE HCL 2 MG CAPSULE PO PRN (15:24)
[2024-01-02] MEDS ORDERED: NALOXONE HCL (KLOXXADO) 8 MG SPRAY NS PRN (15:24)
[2024-01-02] MEDS ORDERED: BENZONATATE 200 MG CAPSULE PO PRN (15:24)
[2024-01-02] MEDS ORDERED: guaiFENesin 600 MG TABLET.ER (FP) PO PRN (15:24)
[2024-01-02] MEDS: NICOTINE POLACRILEX 2 MG GUM BUC PRN (19:03)
[2024-01-02] MEDS: TUBERCULIN PPD 5 TU/0.1ML VIAL ID ONE (20:07)
[2024-01-02] MEDS: THIAMINE HCL 100 MG TABLET (FP) PO SCH (23:45)
[2024-01-02] MEDS: MELATONIN 5 MG TABLETS PO SCH (23:45)
[2024-01-03] MEDS: PRENATAL VITAMINS W/ FOLIC ACID TABLET (FP) PO SCH (10:10)
[2024-01-03] MEDS: NICOTINE 14 MG/24 HOURS TOPICAL PATCH TD SCH (10:10)
[2024-01-03] MEDS: FLU VACCINE (FLULAVAL) PF 60 MCG/0.5 ML SYRINGE 2023-2024 IM ONE (11:45)
[2024-01-03 12:09] LABS: HEMATOCRIT 40.9 % (32.4-45.2); HEMOGLOBIN 13.3 GM/dL (10.7-15.3); MCH 28.6 pg (25.7-33.7); MCHC 32.6 g/dl (32.0-36.0); MEAN CELL VOLUME 87.8 fl (80-96); MEAN PLT VOLUME 9.5 fl (7.5-11.1); PLATELET COUNT 248 10^3/uL (134-434); RBC 4.66 M/mm3 (3.60-5.2); RDW 13.9 % (11.6-15.6); WHITE BLOOD COUNT 7.1 K/mm3 (4.0-10.0)
[2024-01-03 12:11] LABS: PH,URINE 6.5 (5.0-8.0); URINE APPEARANCE CLOUDY; URINE BILIRUBIN NEGATIVE (NEGATIVE); URINE COLOR YELLOW; URINE GLUCOSE (UA) NEGATIVE (NEGATIVE); URINE KETONE NEGATIVE (NEGATIVE); URINE LEUK ESTERASE NEGATIVE (NEGATIVE); URINE NITRITE NEGATIVE (NEGATIVE); URINE PROTEIN NEGATIVE (NEGATIVE)
[2024-01-03] MEDS: BACLOFEN 10 MG TABLET (FP) PO SCH (12:35)
[2024-01-03 13:05] LABS: CHLORIDE 106 mmol/L (98-107); POTASSIUM 4.7 mmol/L (3.5-5.1); SODIUM 137 mmol/L (136-145)
[2024-01-03 13:10] LABS: CALCIUM 8.9 mg/dL (8.5-10.1)
[2024-01-03 13:11] LABS: ALBUMIN 3.1 g/dl (3.4-5.0); ANION GAP 4 mmol/L (4-13); BLOOD UREA NITROGEN 14.4 mg/dL (7-18); CO2 28 mmol/L (21-32); GLUCOSE,RANDOM 78 mg/dL (74-106)
[2024-01-03 13:14] LABS: CREATININE 0.6 mg/dL (0.55-1.3); SGOT/AST 36 U/L (15-37); SGPT/ALT 44 U/L (13-61)
[2024-01-03 13:16] LABS: BILIRUBIN,TOTAL 0.4 mg/dL (0.2-1); TOT PROT 6.5 g/dl (6.4-8.2)
[2024-01-03 13:17] LABS: ALK PHOS 59 U/L (45-117)
[2024-01-03] MEDS: GABAPENTIN 300 MG CAPSULE PO SCH (14:09)
[2024-01-04] MEDS ORDERED: busPIRone HCL 5 MG TABLET PO PRN (16:03)
[2024-01-04] MEDS: busPIRone HCL 5 MG TABLET PO SCH (21:37)
[2024-01-04] MEDS: MELATONIN 5 MG TABLETS PO SCH (21:37)
[2024-01-07] MEDS: MELATONIN 5 MG TABLETS PO PRN (21:15)
[2024-01-07] MEDS: IBUPROFEN 600 MG TABLET (FP) PO PRN (22:27)
[2024-01-08] MEDS: MAGNESIUM HYDROX 2400MG/30ML ORAL SUSPENSION 30 ML CUP PO PRN (08:50)
[2024-01-08] MEDS: POLYETHYLENE GLYCOL (HEALTHYLAX) 3350 17 GM PACKET PO PRN (19:10)
[2024-01-08] MEDS: ERYTHROMYCIN BASE 250 MG TAB PO SCH (21:32)
[2024-01-09] MEDS ORDERED: methaDONE HCL 10 MG TABLET PO SCH (06:00)
[2024-01-09] MEDS: BACLOFEN 10 MG TABLET (FP) PO PRN (21:37)
[2024-01-10] MEDS: BENZOCAINE/MENTHOL (CHLORASEPTIC ) LOZENGE MM PRN (07:01)
[2024-01-10] MEDS ORDERED: BENZONATATE 200 MG CAPSULE PO PRN (12:19)
[2024-01-10] MEDS: guaiFENesin 600 MG TABLET.ER (FP) PO PRN (13:45)
[2024-01-10] MEDS: P-EPHED 60MG/TRIPROLIDI 2.5MG TABLET PO PRN (13:45)
[2024-01-11] MEDS: methaDONE HCL 40 MG DISPERSABLE TABLET PO SCH (06:29)
[2024-01-11] MEDS: DOCUSATE SODIUM 100 MG CAPSULE (FP) PO SCH (09:41)
[2024-01-12] MEDS: DOCUSATE SODIUM 100 MG CAPSULE (FP) PO SCH (21:38)
[2024-01-13] MEDS ORDERED: methaDONE HCL 10 MG TABLET PO SCH (06:00)
[2024-01-16] MEDS ORDERED: methaDONE HCL 10 MG TABLET PO SCH (06:00)
[2024-01-16] MEDS: BENZOCAINE 20 % GEL TUBE MM PRN (18:51)
[2024-01-17] MEDS: AMOX TR/POT CLAV 500MG/125MG TABLETS (FP) PO SCH (02:16)
[2024-01-17] MEDS: NICOTINE POLACRILEX 4 MG GUM BUC PRN (11:13)
[2024-01-17] MEDS: MELATONIN 5 MG TABLETS PO PRN (21:15)
[2024-01-18] MEDS ORDERED: methaDONE HCL 10 MG TABLET PO SCH (06:00)
[2024-01-19] MEDS: ACETAMINOPHEN 325 MG TABLET (FP) PO PRN (16:45)
[2024-01-20] MEDS ORDERED: methaDONE HCL 10 MG TABLET PO SCH (06:00)
[2024-01-22] MEDS: methaDONE HCL 40 MG DISPERSABLE TABLET PO ONE (06:48)
[2024-01-22 07:20] VITALS: BP 101/71; PULSE 86; RESP 16; TEMP 98
== END 2024-01-22 10:11 | disposition home or self-care (01) | DRG 772 ==
LOC: YASAS 13:47 → Y5N 18:08
PROVIDERS: ADMIT Allergy & Immunology; ATTEND Psychiatry & Neurology Pain Medicine
PROC: HZ42ZZZ Group Counseling for Substance Abuse Treatment, Cognitive-Behavioral (ICD-10-PCS; principal; 2024-01-02)
DX: F14.20 Cocaine dependence, uncomplicated (principal); F11.20 Opioid dependence, uncomplicated; F17.210 Nicotine dependence, cigarettes, uncomplicated; F19.280 Other psychoactive substance dependence with psychoactive substance-induced anxiety disorder; F19.282 Other psychoactive substance dependence with psychoactive substance-induced sleep disorder; F41.8 Other specified anxiety disorders; G47.00 Insomnia, unspecified; B18.2 Chronic viral hepatitis C; K02.9 Dental caries, unspecified; J06.9 Acute upper respiratory infection, unspecified; M54.50 Low back pain, unspecified; G89.29 Other chronic pain
CPT/HCPCS: 0241U-QW; 36415; 80053; 80307; 81003; 81025; 85027; 86780; 87491; 87591; 87635; 87661; 90686; 93005; 93010; G0008; J0475